=== PATIENT | female | born 1985 | race Caucasian/White ===

== ENCOUNTER 2017-05-11 13:20 | Inpatient (IN) | payer OTHER, MEDICAID ==
[2017-05-11] MEDS ORDERED: LACTATED RINGER'S 1,000 ML IV (13:34)
[2017-05-11] MEDS: LACTATED RINGER'S 1,000 ML IV ×3 (13:56→18:26)
[2017-05-11] MEDS ORDERED: CEFAZOLIN 2 GM/50 ML (PMX) 50 ML IV (14:00)
[2017-05-11] MEDS ORDERED: AMPICILLIN 2 GM/NS (PMX) 100 ML IV (14:00)
[2017-05-11] MEDS ORDERED: LIDOCAINE 1% (MPF) 30 ML INJ INJ (14:00)
[2017-05-11] MEDS ORDERED: CARBOPROST 250 MCG INJ IM (14:00)
[2017-05-11] MEDS ORDERED: BUTORPHANOL 2 MG INJ IV (14:00)
[2017-05-11] MEDS ORDERED: OXYTOCIN 30 UNITS/LR 500 ML IV (14:00)
[2017-05-11] MEDS ORDERED: IBUPROFEN 600 MG TAB PO (14:00)
[2017-05-11] MEDS: BUTORPHANOL 2 MG INJ IV (14:15)
[2017-05-11 14:18] LABS: ADD MAN DIFF? NO
[2017-05-11 14:27] LABS: BASOPHILS % 0.1 % (0.0-2.0); HEMATOCRIT 38.8 % (37.0-47.0); HEMOGLOBIN 13.3 g/dl (12.0-16.0); LYMPHOCYTES # 0.7 10^3/ul (0.8-2.9); LYMPHOCYTES % 4.3 % (15.0-51.0); MEAN CORPUSCULAR HEMOGLOBIN 31.5 pg (29.0-33.0); MEAN CORPUSCULAR HGB CONC 34.3 g/dl (32.0-37.0); MEAN CORPUSCULAR VOLUME 91.9 fl (82.0-101.0); MEAN PLATELET VOLUME 11.7 fl (7.4-10.4); MONOCYTE # 0.6 10^3/ul (0.3-0.9); MONOCYTES % 3.9 % (0.0-11.0); NEUTROPHIL # 13.9 10^3/ul (1.6-7.5); NEUTROPHILS % 91.1 % (39.0-77.0); PLATELET COUNT 160 10^3/UL (140-415); RED BLOOD COUNT 4.22 10^6/ul (4.20-5.40); RED CELL DISTRIBUTION WIDTH 13.2 % (11.5-14.5)
[2017-05-11 14:27] LABS: WHITE BLOOD COUNT 15.2 10^3/ul (4.8-10.8)
[2017-05-11 14:48] LABS: INR 1.01; PARTIAL THROMBOPLASTIN TIME 29.2 Sec (25.0-35.0); PROTIME 13.4 Sec (11.9-14.9)
[2017-05-11 16:05] LABS: HEPATITIS B SURFACE ANTIGEN NEGATIVE (NEGATIVE)
[2017-05-11 16:51] LABS: RAPID PLASMA REAGIN NONREACTIVE (NR)
[2017-05-11] MEDS ORDERED: FENTAnyl 2MCG/ML-ROPIV 0.2% 100 ML (17:20)
[2017-05-11] MEDS ORDERED: HYDROmorphONE 0.5 MG/0.5 ML SYG IV ×2 (17:30)
[2017-05-11] MEDS ORDERED: ONDANSETRON 4 MG INJ IV (17:30)
[2017-05-11] MEDS ORDERED: DIPHENHYDRAMINE 50 MG INJ IV (17:30)
[2017-05-11] MEDS ORDERED: NALOXONE (0.4 MG/ML) INJ IV (17:30)
[2017-05-11] MEDS ORDERED: KETOROLAC 30 MG INJ IV (17:30)
[2017-05-11] MEDS ORDERED: AMPICILLIN 1 GM/NS (PMX) 50 ML IV (18:00)
[2017-05-11] MEDS: FENTAnyl 2MCG/ML-ROPIV 0.2% 100 ML BAG EPI (19:52)
[2017-05-11] MEDS: FAMOTIDINE 20 MG INJ IV (20:17)
[2017-05-12] MEDS: LACTATED RINGER'S 1,000 ML IV
[2017-05-12] MEDS: AMPICILLIN 2 GM/NS (PMX) 100 ML IVPB (02:09)
[2017-05-12] MEDS: FENTAnyl 2MCG/ML-ROPIV 0.2% 100 ML BAG EPI (02:12)
[2017-05-12] MEDS: OXYTOCIN 30 UNITS/LR 500 ML IV ×4 (03:52→14:34)
[2017-05-12] MEDS: METHYLERGONOVINE 0.2 MG INJ IM (03:56)
[2017-05-12] MEDS: MISOPROSTOL 200 MCG TAB PR (04:05)
[2017-05-12] MEDS: LACTATED RINGER'S 1,000 ML IV* ×2 (04:34→12:34)
[2017-05-12] MEDS ORDERED: LANOLIN 7 GM TUBE TOP (05:00)
[2017-05-12] MEDS ORDERED: MISOPROSTOL 200 MCG TAB PR (05:00)
[2017-05-12] MEDS ORDERED: OXYTOCIN 30 UNITS/LR 500 ML IV (05:00)
[2017-05-12] MEDS ORDERED: CARBOPROST 250 MCG INJ IM (05:00)
[2017-05-12] MEDS ORDERED: METHYLERGONOVINE 0.2 MG INJ IM (05:00)
[2017-05-12] MEDS ORDERED: AMPICILLIN 1 GM/NS (PMX) 50 ML IVPB (05:30)
[2017-05-12] MEDS: IBUPROFEN 600 MG TAB PO ×4 (06:39→17:57)
[2017-05-12] MEDS: OXYCODONE/ASPIRIN (4.88/325) TAB PO ×4 (07:13→21:46)
[2017-05-13] MEDS: IBUPROFEN 600 MG TAB PO ×4 (00:13→17:44)
[2017-05-13] MEDS: OXYCODONE/ASPIRIN (4.88/325) TAB PO ×2 (04:09→07:59)
[2017-05-13 10:27] LABS: ADD MAN DIFF? NO
[2017-05-13 10:34] LABS: BASOPHILS % 0.3 % (0.0-2.0); EOSINOPHILS # 0.1 10^3/ul (0.0-0.5); EOSINOPHILS % 1.1 % (0.0-7.0); HEMATOCRIT 29.9 % (37.0-47.0); HEMOGLOBIN 10.3 g/dl (12.0-16.0); LYMPHOCYTES # 1.8 10^3/ul (0.8-2.9); LYMPHOCYTES % 14.6 % (15.0-51.0); MEAN CORPUSCULAR HEMOGLOBIN 32.9 pg (29.0-33.0); MEAN CORPUSCULAR HGB CONC 34.4 g/dl (32.0-37.0); MEAN CORPUSCULAR VOLUME 95.5 fl (82.0-101.0); MEAN PLATELET VOLUME 11.6 fl (7.4-10.4); MONOCYTE # 0.8 10^3/ul (0.3-0.9); MONOCYTES % 6.9 % (0.0-11.0); NEUTROPHIL # 9.2 10^3/ul (1.6-7.5); NEUTROPHILS % 76.3 % (39.0-77.0); PLATELET COUNT 161 10^3/UL (140-415); RED BLOOD COUNT 3.13 10^6/ul (4.20-5.40); RED CELL DISTRIBUTION WIDTH 13.6 % (11.5-14.5)
[2017-05-14] MEDS ORDERED: DIPHTH/TET/ACEL PERTUSS (ADULT) 0.5 ML VIAL IM* (09:00)
== END 2017-05-13 19:00 | disposition home or self-care (01) | DRG 775 ==
LOC: L-D 13:20 → PP1 05-12 06:32
PROVIDERS: Obstetrics & Gynecology
PROC: 10E0XZZ Delivery of Products of Conception, External Approach (ICD-10-PCS; principal; 2017-05-12)
PROC: 0HQ9XZZ Repair Perineum Skin, External Approach (ICD-10-PCS; 2017-05-12)
PROC: 3E033VJ Introduction of Other Hormone into Peripheral Vein, Percutaneous Approach (ICD-10-PCS; 2017-05-12)
DX: O48.0 Post-term pregnancy (principal); O70.0 First degree perineal laceration during delivery; Z3A.40 40 weeks gestation of pregnancy; O34.211 Maternal care for low transverse scar from previous cesarean delivery; Z37.0 Single live birth
CPT/HCPCS: 62319; 85025; 85610; 85730; 86592; 86900; 86901; 87340; 99464